=== PATIENT | male | born 1935 | race Caucasian/White ===

== ENCOUNTER → 2017-06-18 | Outpatient (CLI) | payer MEDICARE, BC ==
--- NOTE | 2017-06-18 17:15 | PCVCIMAG ---
EXAM: VENOUS DUPLEX BOTH LOWER EXTREMITIES INDICATION: Leg pain and swelling. FINDINGS: Right leg: No thrombus in the common femoral, main femoral, or popliteal veins. These veins are compressible with phasic flow. Calf veins are unremarkable where seen. Left leg: No thrombus in the common femoral, main femoral, or popliteal veins. These veins are compressible with phasic flow. Calf veins are unremarkable where seen. IMPRESSION: No evidence of deep venous thrombosis in either lower extremity as detailed above. LOC:[id number]
== END | disposition home or self-care (01) ==
LOC: PCVCIMAG 15:26
PROVIDERS: ATTEND Internal Medicine Cardiovascular Disease
DX: R60.0 Localized edema (principal); I25.10 Atherosclerotic heart disease of native coronary artery without angina pectoris; I35.0 Nonrheumatic aortic (valve) stenosis; E78.00 Pure hypercholesterolemia, unspecified; I10 Essential (primary) hypertension
CPT/HCPCS: 93970

== ENCOUNTER → 2018-08-19 | Outpatient (CLI) | payer MEDICARE, BC ==
[~2018-08-19] MED LIST: REGADENOSON 0.4 MG/5 ML DISP.SYRIN. IV ONE
--- NOTE | 2018-08-19 13:10 | PCVCIMAG ---
APPROVED REPORT Imaging Protocol: Rest Tc-99m/Stress Tc-99m 1 day Study performed: 08/19/2018 10:02:57 Indication: CAD Patient Location: Out-Patient Stress Nurse: Mary Pugh RN, AWILDA Mccloud Tech:Antoni Gregg RUBYJOSE Ht: 5 ft 6 in Wt: 195 lbs BSA: 1.98 m2 HR: 95 bpm BP: 168/87 mmHg BMI: 31.47 Rhythm: Sinus Rhythm Medical History Medical History: Age, HTN, CAD, Former Smoker Medications: Amlodipine, ASA, Atorvastatin, Sinemet, Carvedilol, Omeprozole, Gabapentin, Tramadol, Dyazide Allergies: Celebrex, Crestor, Simvastatin Previous Cardiac Procedures: CABG Exercise History: Sedentary Physical Disabilities: Back Resting Data Rest SPECT myocardial perfusion imaging was performed in supine position 45 minutes following the intravenous injection of 10.9 mCi of Tc-99m Sestamibi. Time of rest injection: 919 Date: 08/19/2018 Administration Route: IV Administration Site: Right AC Pharmacologic Stress Pharmacologic stress test was performed by injecting Regadenoson 0.4 mg IV push over 10-15 seconds immediately followed by the intravenous injection of 34.2 mCi of Tc-99m Sestamibi. Time of stress injection: 1030 Date: 08/19/2018 Administration Route: IV Administration Site: Right AC Gated Stress SPECT was performed 45 minutes after stress injection. The images were gated to evaluate regional wall motion and calculate left ventricular ejection fraction. Stress Test Details Stress Test: Pharmacologic stress testing performed using 0.4 mg of regadenoson per 5 mL given IV over 10 seconds. Reason for pharmacologic stress test: Spinal stenosis. HRMax Heart Rate (APMHR): 137 bpm Resting HR: 95 bpmTarget HR (85% APMHR): 116 bpm Max HR Achieved: 110 bpm % of APMHR: 80 Recovery HR: 104 bpm BP Resting BP: 168/87 mmHg Max BP: 142/80 mmHg Recovery BP: 146/83 mmHg ECG Resting ECG: Sinus Rhythm, nonspecific ST-T abnormalities Stress ECG: Sinus Rhythm, nonspecific ST-T abnormalities ST Change: Non-ischemic Arrhythmia: PVC's Recovery ECG: Sinus Tachycardia Clinical Reason for Termination: Completed protocol Stress Symptoms: Lightheaded Exercise duration: min 55 sec Symptoms resolved with caffeine. Study Quality Study: Good Study Data Post stress, the left ventricular ejection was 71%.. SSS: 1 SRS: 1 SDS: 0 TID = 1.09. Perfusion There is a small area of moderately reduced uptake in the basal segment of the inferior wall which is seen on the stress images as well as the resting images. This area is hypokinetic and is most consistent with myocardial scar. Wall Motion Normal left ventricular wall motion. 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 The study is of low probability for inducible ischemia. There is normal LV systolic function, EF of 71%.
== END | disposition home or self-care (01) ==
LOC: PCVCIMAG 09:32
PROVIDERS: ATTEND Internal Medicine Cardiovascular Disease
DX: I25.119 Atherosclerotic heart disease of native coronary artery with unspecified angina pectoris (principal); I10 Essential (primary) hypertension; Z87.891 Personal history of nicotine dependence; E78.00 Pure hypercholesterolemia, unspecified; R60.9 Edema, unspecified; M19.90 Unspecified osteoarthritis, unspecified site; E78.5 Hyperlipidemia, unspecified; Z79.82 Long term (current) use of aspirin
CPT/HCPCS: 78452; 93017; A9500; G0463; J2785

== ENCOUNTER → 2019-03-17 | Outpatient (CLI) | payer MEDICARE, BC | END | disposition home or self-care (01) | LOC: PCVCCLINIC 10:00 | PROVIDERS: ATTEND Internal Medicine Cardiovascular Disease | DX: I25.10 Atherosclerotic heart disease of native coronary artery without angina pectoris (principal); I10 Essential (primary) hypertension; E78.00 Pure hypercholesterolemia, unspecified; R60.9 Edema, unspecified; E78.5 Hyperlipidemia, unspecified; Z88.8 Allergy status to other drugs, medicaments and biological substances; Z79.82 Long term (current) use of aspirin; Z79.899 Other long term (current) drug therapy | CPT/HCPCS: 93005; G0463 ==

== ENCOUNTER → 2019-03-18 | Outpatient (CLI) | payer MEDICARE, BC | END | disposition home or self-care (01) | LOC: PCVCCLINIC 10:00 | PROVIDERS: ATTEND Internal Medicine Cardiovascular Disease | DX: E78.00 Pure hypercholesterolemia, unspecified (principal); Z88.6 Allergy status to analgesic agent | CPT/HCPCS: 36415 ==